=== PATIENT | female | born 1945 | race Caucasian/White ===

== ENCOUNTER → 2024-08-01 09:12 | Outpatient (REF) | payer MEDICARE, BC, SELFPAY | LOC: PAVMRI 09:12 | PROVIDERS: ATTENDING PHYSICIAN Internal Medicine Gastroenterology; FAMILY PHYSICIAN Internal Medicine | DX: R07.89 Other chest pain (principal); R93.5 Abnormal findings on diagnostic imaging of other abdominal regions, including retroperitoneum | CPT/HCPCS: 74183; A9575 ==